=== PATIENT | male | born 1960 | race Caucasian/White ===

== ENCOUNTER 2016-08-18 14:12 | Emergency (ER) | payer MEDICAID, OTHER ==
[~2016-08-18] VITALS: Ht 160 cm; Wt 82.0 kg
[2016-08-18] MEDS ORDERED: SODIUM CHLORIDE 0.9% 1,000 ML IV ONE (15:20)
[2016-08-18] MEDS ORDERED: ONDANSETRON HCL 4MG/2ML VIAL IV STA (15:20)
[2016-08-18] MEDS ORDERED: KETOROLAC 30MG/ML VIAL IV STA (15:20)
[2016-08-18 16:21] LABS: HEMATOCRIT. 46.9 % (42.0-52.0); HEMOGLOBIN. 16.6 g/dL (14.0-18.0); MEAN CORPUSCULAR HEMOGLOBIN 30.9 pg (28.0-32.0); MEAN CORPUSCULAR HGB CONC 35.5 g/dL (31.0-37.0); MEAN CORPUSCULAR VOLUME 87.1 fL (80.0-94.0); MEAN PLATELET VOLUME 8.3 fl (7.4-10.4); PLATELET 191 x1000/uL (130-400); RED BLOOD CELL COUNT 5.39 mill/uL (4.7-6.1); RED CELL DISTRIBUTION WIDTH 14.1 % (11.6-14.6); WHITE BLOOD COUNT 9.8 x1000/uL (4.5-11.0)
[2016-08-18 16:26] LABS: INR 1.2; PROTHROMBIN TIME 12.5 sec
[2016-08-18 16:31] LABS: ALANINE AMINOTRANSFERASE 69 IU/L (13-61); ALBUMIN 4.4 g/dL (3.4-5.0); ANION GAP 25; CALCIUM 8.9 mg/dL (8.5-10.1); CARBON DIOXIDE 21 mEq/L (21-32); CHLORIDE 96 mEq/L (98-107); ETHANOL BLOOD < 10 mg/dL; INDEX HEMOLYSI 1 (1-3); INDEX ICTERIC 2 (1-4); INDEX LIPEMIC 1 (1-3); LIPASE 139 IU/L (73-393); UREA NITROGEN BLOOD 17 mg/dL (7-21)
[2016-08-18 16:33] LABS: eGFR > 60 mL/min (>60)
[2016-08-18 16:39] LABS: DIFFERENTIAL COMMENT 1
[2016-08-18 16:54] LABS: CLARITY URINE CLEAR (CLEAR); COLOR URINE YELLOW (YELLOW); GLUCOSE URINE NEGATIVE (NEGATIVE); KETONES URINE 4+ (NEGATIVE); LEUKOCYTE ESTERASE URINE NEGATIVE (NEGATIVE); NITRITE URINE NEGATIVE (NEGATIVE); OCCULT BLOOD URINE NEGATIVE (NEGATIVE); PROTEIN URINE 1+ (NEGATIVE); SPECIFIC GRAVITY URINE 1.025 (1.005-1.030); UROBILINOGEN URINE 0.2 E.U./dL (0.2-1.0)
[2016-08-18 17:13] LABS: BACTERIA URINE NONE SEEN; RBC URINE 0-2 /hpf (0-2); SQUAMOUS EPITHELIAL CELL URINE RARE /lpf (RARE/1+); WBC URINE 0-2 /hpf (0-2)
[2016-08-18 17:32] VITALS: BP 156/80
[2016-08-18 17:51] LABS: PLATELET ESTIMATE NORMAL
== END 2016-08-18 17:45 | disposition home or self-care (01) ==
LOC: ER 15:54
DX: R10.9 Unspecified abdominal pain (principal); M54.9 Dorsalgia, unspecified; I10 Essential (primary) hypertension; F10.20 Alcohol dependence, uncomplicated; Z98.890 Other specified postprocedural states
CPT/HCPCS: 36415; 80053; 81001; 83690; 85025; 85610; 96361; 96374; 96375; 99284; G0482; J1885; J2405; J7030; Z7610